=== PATIENT | male | born 1970 | race Caucasian/White ===

== ENCOUNTER 2023-12-30 07:14 | Day surgery (SDC) | payer MEDICARE, OTHER ==
[2023-12-30 07:52] VITALS: TEMP 97.4
[2023-12-30] MEDS: LACTATED RINGERS 1,000 ML IV SCH (07:52)
[2023-12-30] MEDS: LIDOCAINE 1% (10MG/ML) FOR IV START INTRADERMA STA (07:53)
[2023-12-30] MEDS: IV FLUID CONTINUATION 1,000 ML IV ONE (07:54)
[2023-12-30] MEDS ORDERED: PROPOFOL 10 MG/ML 20 ML VIAL IV ONE (08:15)
--- NOTE | 2023-12-30 08:29 | P.PCN ---
Date of Procedure: 12/30/23 Procedure(s) Performed: BRIEF HISTORY: Patient is a 53-year-old, pleasant, white male scheduled for an upper endoscopy as a part evaluation of severe GERD for the last few months duration. Has been on Protonix 40 mg twice daily and despite this remains symptomatic.. PROCEDURE PERFORMED: Esophagogastroduodenoscopy biopsy. PREOPERATIVE DIAGNOSIS: Longstanding history of GERD with worsening symptoms daily. IV sedation per anesthesia. PROCEDURE: After informed consent was obtained, the patient was brought into the endoscopy unit. IV sedation was administered by Anesthesia under continuous monitoring. Initially the Olympus GIF-140 video endoscope was inserted into the mouth. Esophagus intubated without any difficulty. It was gradually advanced into the stomach and duodenum and carefully examined. The bulb and the second part of the duodenum appeared normal. The scope at this time was withdrawn to the stomach, adequately insufflated with air, and upon careful examination, mucosa of the antrum, mild patchy areas of erythema consistent with gastritis and biopsies were done from this area. Mucosa body, cardia and the fundus appeared normal. The scope was then withdrawn into the esophagus. Small hiatal hernia noted. The GE junction was located at 41 cm from the incisors. Linear erosions noted in the distal esophagus consistent with LA grade B reflux esophagitis. Rest of the esophagus appeared normal and the patient tolerated the procedure well. IMPRESSION: 1. Linear erosions of the distal esophagus consistent with LA grade B reflux esophagitis. 2. Small hiatal hernia 3. Mild antral gastritis. RECOMMENDATIONS: The findings of this examination were discussed with the ibrahima lopez as well as his family. Follow-up with the biopsy results. He was advised to continue with Protonix 40 mg twice daily half hour before breakfast and dinnertime and use with Pepcid 20 mg twice daily at noon and bedtime. Strict diet modification and antireflux measures..
[2023-12-30 08:52] VITALS: BP 111/79; PULSE 97; RESP 18
== END 2023-12-30 09:15 | disposition home or self-care (01) ==
LOC: ORWHC2ENDO 07:14
PROVIDERS: ATTEND Internal Medicine Gastroenterology
CPT/HCPCS: 43239; 88305

== ENCOUNTER 2024-02-22 06:58 | Emergency (ER) | payer MEDICARE ==
[2024-02-22 07:03] VITALS: TEMP 98
--- NOTE | 2024-02-22 07:05 | ED ---
SOB HPI - General Chief Complaint: Shortness of Breath Stated Complaint: SOB Time Seen by Provider: 02/22/24 06:59 Source: patient, EMS, RN notes reviewed Mode of arrival: EMS Limitations: no limitations - History of Present Illness Initial Comments: 54-year-old male presents emergency department complaint of shortness of breath. Patient does have history of COPD states he still current smoker. Patient states that for several months he has issues like this he states he is gets steroids and breathing treatments and seems to help he has been doing breathing treatments at home but states his shortness of breath was not resolving. He states he always has a productive cough and worsening usual denies any fever. He states that he has had some fluid on his lungs in the past 2 associated with his pneumonia. Patient denies any abdominal pain states that supplemental oxygen in his room receiving is helping. Patient reports no palpitations. - Related Data Home Medications Medication Instructions Recorded Confirmed Albuterol Sulfate [Ventolin HFA] 1 puff INHALATION DIRECTED PRN 12/29/23 12/29/23 Amitriptyline HCl [Elavil] 100 mg PO HS 12/29/23 12/29/23 Budesonide/Formoterol Fumarate 1 puff INHALATION BID 12/29/23 12/29/23 [Symbicort 160-4.5 Mcg Inhaler] Cholecalciferol [Vitamin D3 (25 1 tab PO DAILY 12/29/23 12/29/23 Mcg = 1000 Iu)] Cyanocobalamin (Vitamin B-12) 1 tab PO DAILY 12/29/23 12/29/23 [Vitamin B-12] Famotidine 20 mg PO BID 12/29/23 12/29/23 Fluticasone Nasal Davidson [Flonase 1 spr NASAL DAILY 12/29/23 12/29/23 Nasal Davidson] Pantoprazole [Protonix] 40 mg PO BID 12/29/23 12/29/23 buPROPion HCL [Wellbutrin XL] 150 mg PO QAM 12/29/23 12/29/23 Previous Rx's Medication Instructions Recorded Ipratropium-Albuterol Nebulize 3 ml INHALATION Q4-6H PRN #90 ml 12/22/22 [Duoneb 0.5 mg-3 mg/3 ml Soln] Albuterol Nebulized [Ventolin 2.5 mg INHALATION Q4H 8 Days #150 02/22/24 Nebulized] ml Doxycycline [Vibramycin] 100 mg PO BID #20 capsule 02/22/24 Ipratropium Nebulized [Atrovent 0.5 mg INHALATION Q6HR #300 ml 02/22/24 Nebulized 0.2 MG/ML] predniSONE 50 mg PO DAILY #5 tab 02/22/24 Allergies Allergy/AdvReac Type Severity Reaction Status Date / Time No Known Allergies Allergy Verified 12/30/23 07:45 Review of Systems ROS Statement: Those systems with pertinent positive or pertinent negative responses have been documented in the HPI. ROS Other: All systems not noted in ROS Statement are negative. Past Medical History Past Medical History: COPD, GERD/Reflux, Pneumonia History of Any Multi-Drug Resistant Organisms: None Reported Past Surgical History: Orthopedic Surgery Additional Past Surgical History / Comment(s): R hip REPLACED. BILATERAL KNEE REPLACED. Past Anesthesia/Blood Transfusion Reactions: No Reported Reaction Smoking Status: Current every day smoker General Exam Limitations: no limitations General appearance: alert, in no apparent distress Head exam: Present: atraumatic, normocephalic, normal inspection Eye exam: Present: normal appearance, PERRL, EOMI. Absent: scleral icterus, conjunctival injection, periorbital swelling ENT exam: Present: normal exam, normal oropharynx, mucous membranes moist Neck exam: Present: normal inspection, full ROM. Absent: tenderness, meningismus, lymphadenopathy Respiratory exam: Present: respiratory distress, wheezes. Absent: normal lung sounds bilaterally, rales, rhonchi, stridor Cardiovascular Exam: Present: normal rhythm, tachycardia, normal heart sounds. Absent: systolic murmur, diastolic murmur, rubs, gallop, clicks GI/Abdominal exam: Present: soft, normal bowel sounds. Absent: distended, tenderness, guarding, rebound, rigid Neurological exam: Present: alert Skin exam: Present: warm, dry, intact, normal color. Absent: rash Course Vital Signs 02/22/24 02/22/24 02/22/24 06:59 07:05 07:37 Temperature 98.0 F Pulse Rate 111 H 102 H Respiratory 20 20 20 Rate Blood Pressure 138/104 128/88 O2 Sat by Pulse 96 98 Oximetry 02/22/24 02/22/24 08:32 08:51 Temperature Pulse Rate 98 96 Respiratory Rate Blood Pressure O2 Sat by Pulse Oximetry Medical Decision Making - Medical Decision Making Was pt. sent in by a medical professional or institution (SHELIA Rolon, INSTANT POWDER SUPERVISOR, urgent care, hospital, or correction...) When possible be specific @ -No Did you speak to anyone other than the patient for history (EMS, parent, family, police, friend...)? What history was obtained from this source @ -No Did you review nursing and triage notes (agree or disagree)? Why? @ -I reviewed and agree with nursing and triage notes Were old charts reviewed (outside hosp., previous admission, EMS record, old EKG, old radiological studies, urgent care reports/EKG's, correction records)? Report findings @ -No old charts were reviewed Differential Diagnosis (chest pain, altered mental status, abdominal pain women, abdominal pain men, vaginal bleeding, weakness, fever, dyspnea, syncope, headache, dizziness, GI bleed, back pain, seizure, CVA, palpatations, mental health, musculoskeletal)? @ -Differential Dyspnea: Coronary syndrome, arrhythmia, tamponade, asthma, COPD, pulmonary embolism, pneumonia, pneumothorax, pulmonary effusion, anaphylaxis, diabetic ketoacidosis, flailed chest, pulmonary contusion, diaphragmatic rupture, anemia, neuromuscular, this is not meant to be an all-inclusive list. EKG interpreted by me (3pts min.). @ -As above X-rays interpreted by me (1pt min.). @ -Chest x-ray shows COPD changes no acute infiltrate CT interpreted by me (1pt min.). @ -None done U/S interpreted by me (1pt. min.). @ -None done What testing was considered but not performed or refused? (CT, X-rays, U/S, labs)? Why? @ -None What meds were considered but not given or refused? Why? @ -None Did you discuss the management of the patient with other professionals (professionals i.e. SHELIA Rolon, INSTANT POWDER SUPERVISOR, lab, RT, psych nurse, neonatal social worker, technical publications manager, teacher, control officer, case monitor)? Give summary @ -No Was smoking cessation discussed for >3mins.? @ -I discussed smoking cessation for greater than 3 minutes. The risk of smoking were discussed with the patient including but not limited to risks of cancer, stroke, coronary artery disease and COPD. Also discussed with patient were multiple methods of quitting smoking. Lastly we discussed the financial cost of smoking. Was critical care preformed (if so, how long)? @ -No Were there social determinants of health that impacted care today? How? (Homelessness, low income, unemployed, alcoholism, drug addiction, transportation, low edu. Level, literacy, decrease access to med. care, nursing home, rehab)? @ -No Was there de-escalation of care discussed even if they declined (Discuss DNR or withdrawal of care, Hospice)? DNR status @ -No What co-morbidities impacted this encounter? (DM, HTN, Smoking, COPD, CAD, Cancer, CVA, ARF, Chemo, Hep., AIDS, mental health diagnosis, sleep apnea, morbid obesity)? @ -COPD Was patient admitted / discharged? Hospital course, mention meds given and route, prescriptions, significant lab abnormalities, going to OR and other pertinent info. @ -Discharge patient felt great improved with IV steroids, DuoNeb treatment. Patient has COPD exacerbation. Patient did receive Solu-Medrol, Rocephin. Patient discharged on prednisone, albuterol and Atrovent treatments along with doxycycline. Patient follow-up with counseling services manager. Undiagnosed new problem with uncertain prognosis? @ -No Drug Therapy requiring intensive monitoring for toxicity (Heparin, Nitro, Insulin, Cardizem)? @ -No Were any procedures done? @ -No Diagnosis/symptom? @ -COPD exacerbation Acute, or Chronic, or Acute on Chronic? @ -Acute Uncomplicated (without systemic symptoms) or Complicated (systemic symptoms)? @ -Complicated Side effects of treatment? @ -No Exacerbation, Progression, or Severe Exacerbation? @ -Exacerbation Poses a threat to life or bodily function? How? (Chest pain, USA, CA, pneumonia, PE, COPD, DKA, ARF, appy, cholecystitis, CVA, Diverticulitis, Homicidal, Suicidal, threat to staff... and all critical care pts) @ -Yes COPD exacerbation possible respiratory failure - Lab Data Result diagrams: 02/22/24 07:15 02/22/24 07:15 Lab Results 02/22/24 02/22/24 02/22/24 Range/Units 07:15 07:15 07:15 WBC 8.5 (3.8-10.6) k/uL RBC 4.53 (4.30-5.90) m/uL Hgb 15.3 (13.0-17.5) gm/dL Hct 46.6 (39.0-53.0) % MCV 102.9 H (80.0-100.0) fL MCH 33.7 (25.0-35.0) pg MCHC 32.7 (31.0-37.0) g/dL RDW 12.0 (11.5-15.5) % Plt Count 267 (150-450) k/uL MPV 6.8 Neutrophils % 72 % Lymphocytes % 12 % Monocytes % 6 % Eosinophils % 9 % Basophils % 0 % Neutrophils # 6.1 (1.3-7.7) k/uL Lymphocytes # 1.0 (1.0-4.8) k/uL Monocytes # 0.5 (0-1.0) k/uL Eosinophils # 0.8 H (0-0.7) k/uL Basophils # 0.0 (0-0.2) k/uL Macrocytosis Slight PT 10.4 (10.0-12.5) sec INR 0.9 (<1.2) APTT 29.5 (22.0-30.0) sec Sodium 135 L (137-145) mmol/L Potassium 4.4 (3.5-5.1) mmol/L Chloride 103 (98-107) mmol/L Carbon Dioxide 26 (22-30) mmol/L Anion Gap 6 mmol/L BUN 12 (9-20) mg/dL Creatinine 1.05 (0.66-1.25) mg/dL Est GFR (CKD-EPI)AfAm >90 (>60 ml/min/1.73 sqM) Est GFR (CKD-EPI)NonAf 81 (>60 ml/min/1.73 sqM) Glucose 105 H (74-99) mg/dL Plasma Lactic Acid Morro (0.7-2.0) mmol/L Calcium 9.3 (8.4-10.2) mg/dL Total Bilirubin 0.6 (0.2-1.3) mg/dL AST 18 (17-59) U/L ALT 17 (4-49) U/L Alkaline Phosphatase 88 (38-126) U/L Troponin I (0.000-0.034) ng/mL NT-Pro-B Natriuret Pep 25 pg/mL Total Protein 7.0 (6.3-8.2) g/dL Albumin 4.4 (3.5-5.0) g/dL Influenza Type A (PCR) (Not Detectd) Influenza Type B (PCR) (Not Detectd) RSV (PCR) (Not Detectd) SARS-CoV-2 (PCR) (Not Detectd) 02/22/24 02/22/24 02/22/24 Range/Units 07:15 07:15 07:15 WBC (3.8-10.6) k/uL RBC (4.30-5.90) m/uL Hgb (13.0-17.5) gm/dL Hct (39.0-53.0) % MCV (80.0-100.0) fL MCH (25.0-35.0) pg MCHC (31.0-37.0) g/dL RDW (11.5-15.5) % Plt Count (150-450) k/uL MPV Neutrophils % % Lymphocytes % % Monocytes % % Eosinophils % % Basophils % % Neutrophils # (1.3-7.7) k/uL Lymphocytes # (1.0-4.8) k/uL Monocytes # (0-1.0) k/uL Eosinophils # (0-0.7) k/uL Basophils # (0-0.2) k/uL Macrocytosis PT (10.0-12.5) sec INR (<1.2) APTT (22.0-30.0) sec Sodium (137-145) mmol/L Potassium (3.5-5.1) mmol/L Chloride (98-107) mmol/L Carbon Dioxide (22-30) mmol/L Anion Gap mmol/L BUN (9-20) mg/dL Creatinine (0.66-1.25) mg/dL Est GFR (CKD-EPI)AfAm (>60 ml/min/1.73 sqM) Est GFR (CKD-EPI)NonAf (>60 ml/min/1.73 sqM) Glucose (74-99) mg/dL Plasma Lactic Acid Morro 1.0 (0.7-2.0) mmol/L Calcium (8.4-10.2) mg/dL Total Bilirubin (0.2-1.3) mg/dL AST (17-59) U/L ALT (4-49) U/L Alkaline Phosphatase (38-126) U/L Troponin I <0.012 (0.000-0.034) ng/mL NT-Pro-B Natriuret Pep pg/mL Total Protein (6.3-8.2) g/dL Albumin (3.5-5.0) g/dL Influenza Type A (PCR) Not Detected (Not Detectd) Influenza Type B (PCR) Not Detected (Not Detectd) RSV (PCR) Not Detected (Not Detectd) SARS-CoV-2 (PCR) Not Detected (Not Detectd) - EKG Data -: EKG Interpreted by Me EKG Comments: EKG performed at 7: 08 sinus tachycardia rate of 108 MI 132 QRS 108 QT/QTc 323/[address] elevation or depression noted Disposition Clinical Impression: COPD with acute exacerbation Disposition: HOME SELF-CARE Condition: Stable Instructions (If sedation given, give patient instructions): COPD (Chronic Obstructive Pulmonary Disease) (ED) Additional Instructions: Please return to the Emergency Department if symptoms worsen or any other concerns. Prescriptions: Ipratropium Nebulized [Atrovent Nebulized 0.2 MG/ML] 0.5 mg INHALATION Q6HR #300 ml predniSONE 50 mg PO DAILY #5 tab Albuterol Nebulized [Ventolin Nebulized] 2.5 mg INHALATION Q4H 8 Days #150 ml Doxycycline [Vibramycin] 100 mg PO BID #20 capsule Is patient prescribed a controlled substance at d/c from ED?: No Referrals: Gayla Morales DO [Primary Care Provider] - 1-2 days Time of Disposition: 08:49
[2024-02-22] MEDS: methylPREDNISolone SOD SUCCI 125 MG/2 ML VIAL IV STA (07:35)
[2024-02-22 07:42] LABS: Basophils % (A) 0 %; Eosinophils # (A) 0.8 k/uL (0-0.7); Eosinophils % (A) 9 %; HCT 46.6 % (39.0-53.0); HGB 15.3 gm/dL (13.0-17.5); Lymphocytes % (A) 12 %; MCH 33.7 pg (25.0-35.0); MCHC 32.7 g/dL (31.0-37.0); MCV 102.9 fL (80.0-100.0); Macrocytosis Slight; Mean Platelet Volume 6.8; Monocytes # (A) 0.5 k/uL (0-1.0); Monocytes % (A) 6 %; Neutrophils # (A) 6.1 k/uL (1.3-7.7); Neutrophils % (A) 72 %; Platelet Count 267 k/uL (150-450); RBC 4.53 m/uL (4.30-5.90); WBC 8.5 k/uL (3.8-10.6)
[2024-02-22 07:47] LABS: ALT 17 U/L (4-49); AST 18 U/L (17-59); African American GFR (CKD) >90 (>60 ml/min/1.73 sqM); Albumin 4.4 g/dL (3.5-5.0); Alkaline Phosphatase 88 U/L (38-126); Anion Gap 6 mmol/L; Blood Urea Nitrogen 12 mg/dL (9-20); Calcium 9.3 mg/dL (8.4-10.2); Carbon Dioxide 26 mmol/L (22-30); Chloride 103 mmol/L (98-107); Glucose 105 mg/dL (74-99); Non-African American GFR(CKD) 81 (>60 ml/min/1.73 sqM); Potassium 4.4 mmol/L (3.5-5.1); Sodium 135 mmol/L (137-145); Total Bilirubin 0.6 mg/dL (0.2-1.3)
[2024-02-22 07:52] LABS: INR 0.9 (<1.2); Partial Thromboplastin Time 29.5 sec (22.0-30.0); Prothrombin Time 10.4 sec (10.0-12.5)
--- NOTE | 2024-02-22 07:54 | XR ---
2 view chest HISTORY: Difficulty breathing COMPARISON: 12/22/2022 TECHNIQUE: PA and lateral views chest obtained. FINDINGS: The lungs are clear of consolidative, interstitial or masslike opacity. There is no pleural effusion, pleural thickening or pneumothorax. The heart, pulmonary vasculature, mediastinum and nadine are within normal limits. There is a healed left seventh rib fracture otherwise the osseous structures are intact. IMPRESSION: No significant abnormality. No acute cardiopulmonary disease. [facility], , 02/22/2024 7:52 AM
[2024-02-22 07:56] LABS: NT-Pro-B-Type Natriuretic Pept 25 pg/mL
[2024-02-22] MEDS: IPRATROPIUM-ALBUTEROL 3 ML NEB INHALATION STA (08:30)
[2024-02-22] MEDS: cefTRIAXone IN SWFI 1,000 MG/10 ML SYRINGE IVP STA (09:17)
[2024-02-22 09:28] VITALS: BP 124/89; PULSE 88; RESP 18
== END 2024-02-22 09:28 | disposition home or self-care (01) ==
LOC: EC 06:58
DX: J44.1 Chronic obstructive pulmonary disease with (acute) exacerbation (principal); F17.200 Nicotine dependence, unspecified, uncomplicated
CPT/HCPCS: 99285; 96374; 96375; 36415; 94640; 93005; 83880; 80053; 83605; 84484; 85025; 85610; 85730; 87636; 71046; 99406; J0696; J2919

== ENCOUNTER 2024-03-07 04:34 | Emergency (ER) | payer MEDICARE ==
--- NOTE | 2024-03-07 05:16 | ED ---
General Adult HPI <Arcenio Fletcher - Last Filed: 03/07/24 07:40> - General Source: patient Mode of arrival: ambulatory <Tiffany - Last Filed: 03/07/24 08:01> - General Chief complaint: Shortness of Breath Stated complaint: TRACY Time Seen by Provider: 03/07/24 05:01 - History of Present Illness Initial comments: This is a 54-year-old gentleman with a past medical history of COPD/emphysema presenting today for shortness of breath. Patient states feels similar to when he has presented similarly for COPD exacerbations. States he will go on steroids and as soon as he finishes the steroids his symptoms worsen. A few days ago he finished a 5-day course of 50 mg of prednisone. This briefly improved his symptoms however over the last 2 days he has had worsening shortness of breath. Endorses a pressure across his chest that occurs when he tries to take a deep breath, otherwise denies chest pain. Endorses a cough productive of sputum but denies hemoptysis. Denies any recent fevers or chills, new numbness or weakness, abdominal pain nausea vomiting or diarrhea. Patient is currently still smoking and has a follow-up appointment with the manager credit this coming Friday. (Tiffany Panchal) - Related Data Home Medications Medication Instructions Recorded Confirmed Albuterol Sulfate [Ventolin HFA] 1 puff INHALATION DIRECTED PRN 12/29/23 12/29/23 Amitriptyline HCl [Elavil] 100 mg PO HS 12/29/23 12/29/23 Budesonide/Formoterol Fumarate 1 puff INHALATION BID 12/29/23 12/29/23 [Symbicort 160-4.5 Mcg Inhaler] Cholecalciferol [Vitamin D3 (25 1 tab PO DAILY 12/29/23 12/29/23 Mcg = 1000 Iu)] Cyanocobalamin (Vitamin B-12) 1 tab PO DAILY 12/29/23 12/29/23 [Vitamin B-12] Famotidine 20 mg PO BID 12/29/23 12/29/23 Fluticasone Nasal [place] [Flonase 1 spr NASAL DAILY 12/29/23 12/29/23 Nasal [place]] Pantoprazole [Protonix] 40 mg PO BID 12/29/23 12/29/23 buPROPion HCL [Wellbutrin XL] 150 mg PO QAM 12/29/23 12/29/23 Previous Rx's Medication Instructions Recorded Ipratropium-Albuterol Nebulize 3 ml INHALATION Q4-6H PRN #90 ml 12/22/22 [Duoneb 0.5 mg-3 mg/3 ml Soln] Albuterol Nebulized [Ventolin 2.5 mg INHALATION Q4H 8 Days #150 02/22/24 Nebulized] ml Doxycycline [Vibramycin] 100 mg PO BID #20 capsule 02/22/24 Ipratropium Nebulized [Atrovent 0.5 mg INHALATION Q6HR #300 ml 02/22/24 Nebulized 0.2 MG/ML] predniSONE 50 mg PO DAILY #5 tab 02/22/24 predniSONE 50 mg PO DAILY 5 Days #5 tab 03/07/24 Allergies Allergy/AdvReac Type Severity Reaction Status Date / Time No Known Allergies Allergy Verified 12/30/23 07:45 Review of Systems ROS Other: All systems not noted in ROS Statement are negative. <Arcenio Fletcher - Last Filed: 03/07/24 07:40> ROS Other: All systems not noted in ROS Statement are negative. <Tiffany Panchal - Last Filed: 03/07/24 08:01> ROS Statement: Those systems with pertinent positive or pertinent negative responses have been documented in the HPI. Past Medical History Past Medical History: COPD, GERD/Reflux, Pneumonia History of Any Multi-Drug Resistant Organisms: None Reported Past Surgical History: Orthopedic Surgery Additional Past Surgical History / Comment(s): R hip REPLACED. BILATERAL KNEE REPLACED. Past Anesthesia/Blood Transfusion Reactions: No Reported Reaction Past Psychological History: No Psychological Hx Reported Smoking Status: Current every day smoker Past Alcohol Use History: Daily Past Drug Use History: None Reported <Tiffany Panchal - Last Filed: 03/07/24 08:01> General Exam <Tiffany Panchal - Last Filed: 03/07/24 08:01> - General Exam Comments Initial Comments: PE: CONSTITUTIONAL: Mild distress, tachypneic, pursed lip breathing nontoxic SKIN: Warm, dry, no jaundice, hives or petechiae EYES: Pupils are equally round, extraocular movements intact without nystagmus, clear conjunctiva, non-icteric sclera HENT: Normocephalic, atraumatic, moist mucus membranes, oropharynx clear without exudates NECK: , Full range of motion, normal appearance PULMONARY: Tachypnea, diffuse wheezesin all lung peoples, no stridor no rhonchi, increased excursion CARDIOVASCULAR: Regular rate, rhythm, normal S1 and S2. No appreciated murmurs, rubs or gallops. Strong radial pulses with intact distal perfusion. No lower extremity edema GASTROINTESTINAL: Soft, active bowel sounds throughout, non-tender, non- distended, no palpable masses, no rebound or guarding. No hepatosplenomegaly GENITOURINARY: MUSCULOSKELETAL: Extremities have no gross deformity, no edema, redness, or swelling. No calf swelling NEUROLOGIC:_a/o x 3, GCS 15, normal mentation and speech. Moves all extremities x 4 without motor or sensory deficit PSYCHIATRIC:_normal mood and affect, thought process is clear and linear (Tiffany Panchal) Course Vital Signs 03/07/24 03/07/24 03/07/24 04:35 05:39 05:43 Temperature 97.7 F Pulse Rate 105 H 99 101 H Respiratory 22 16 Rate Blood Pressure 125/77 104/90 O2 Sat by Pulse 95 98 Oximetry 03/07/24 03/07/24 03/07/24 05:57 06:00 06:20 Temperature Pulse Rate 100 102 H 105 H Respiratory Rate Blood Pressure O2 Sat by Pulse Oximetry 03/07/24 03/07/24 06:21 06:46 Temperature Pulse Rate 106 H 103 H Respiratory 16 Rate Blood Pressure 131/98 O2 Sat by Pulse 97 Oximetry EKG Findings - EKG Comments: EKG Findings:: Tachycardia, rate 102 bpm, [place] interval 150 ms, QRS duration 104 ms, QT/QTc 331/390 ms, no ST elevations or depressions, <Tiffany Panchal - Last Filed: 03/07/24 08:01> Medical Decision Making <Arcenio Fletcher - Last Filed: 03/07/24 07:40> <Tiffany Panchal - Last Filed: 03/07/24 08:01> - Medical Decision Making Patient care signed out to me by previous shift physician, Dr. Panchal. Briefly, patient is a 54-year-old male presents for shortness of breath and chest pain. Patient states that he had symptoms of chest pressure that he describes at the bedside as elephant sitting on his chest. At time of signout patient did not have any labs performed. He did have a EKG that I reviewed independently that showed no signs of ischemia or infarction. He was wheezing. At time of signout patient was pending breathing treatment discharge. Patient seen and evaluated independently at the bedside at approximately 7:25 AM. Patient states he does not have any chest pain at the bedside. Given that patient has high risk features it was recommended to patient to have cardiac workup performed including labs and x-ray specially troponin levels. Patient states he would like to be discharged. States that he feels well. Discussed with patient that he could very well be having a myocardial infarction which may only be apparent with blood work, serial troponins and cardiac monitoring. Patient continues to deny states that he wants to be discharged and would only would like to have cardiac workup after he sees manager credit. Discussed with patient that he has elevated heart score and it would be mullen to perform a workup. Patient continues to refuse and would like to be discharged. Patient given strict return precautions. He is told to return to the emergency department with any worsening chest symptoms or recurrence of chest symptoms. Patient adamantly reports that this is likely to be secondary to his COPD states that his chest pain does get better after steroid administration. Patient has signs of the risk and the gravity of the situation. (Arcenio Fletcher) Was pt. sent in by a medical professional or institution (SHELIA Rolon, [employer]PL[employer], urgent care, hospital, or alf...) When possible be specific @ -No Did you speak to anyone other than the patient for history (EMS, parent, family, police, friend...)? What history was obtained from this source @ -No Did you review nursing and triage notes (agree or disagree)? Why? @ -I reviewed and agree with nursing and triage notes Were old charts reviewed (outside hosp., previous admission, EMS record, old EKG, old radiological studies, urgent care reports/EKG's, alf records)? Report findings Medical records reviewed-Patient presented for similar symptoms on 02/22/2024 during that visit basic labs were obtained, BNP was 25, troponin less than 0.012, x-ray done at that time did not show any acute process Differential Diagnosis (chest pain, altered mental status, abdominal pain women, abdominal pain men, vaginal bleeding, weakness, fever, dyspnea, syncope, headache, dizziness, GI bleed, back pain, seizure, CVA, palpatations, mental health, musculoskeletal)? @Differential Dyspnea: Differential diagnosis remains broad however top considerations inclue: Asthma, COPD, pneumonia, viral infection, pulmonary effusion this is not meant to be an all-inclusive list. Patient states symptoms are consistent with prior COPD exacerbations, he has diffuse wheezes in the bilateral lung peoples, denies chest pain and only notes pressure when trying to take a deep breath. EKG shows no STEMI. Patient presented for similar symptoms approximately 2 weeks ago with a reassuring workup, at this point do not feel additional labs and imaging are indicated. EKG interpreted by me (3pts min.). @ -As above X-rays interpreted by me (1pt min.). @ -None done CT interpreted by me (1pt min.). @ -None done U/S interpreted by me (1pt. min.). @ -None done What testing was considered but not performed or refused? (CT, X-rays, U/S, labs)? Why? I did consider chest x-ray, CBC, CMP, troponin BNP however, as noted above patient's history and exam findings are consistent with COPD exacerbation What meds were considered but not given or refused? Why? @ -None Did you discuss the management of the patient with other professionals (professionals i.e. , PA, IMPLANT POLISHER, lab, RT, psych nurse, addiction social worker, railcar switchman, teacher, diplomatic officer, senior case manager)? Give summary @ -No Was smoking cessation discussed for >3mins.? @ -No Was critical care preformed (if so, how long)? @Yes, 35 minutes Were there social determinants of health that impacted care today? How? (Homelessness, low income, unemployed, alcoholism, drug addiction, transportation, low edu. Level, literacy, decrease access to med. care, long term, rehab)? @ -No Was there de-escalation of care discussed even if they declined (Discuss DNR or withdrawal of care, Hospice)? @ -No What co-morbidities impacted this encounter? (DM, HTN, Smoking, COPD, CAD, Cancer, CVA, ARF, Chemo, Hep., AIDS, mental health diagnosis, sleep apnea, morbid obesity)? @COPD, smoking Was patient admitted / discharged? Hospital course, mention meds given and route, prescriptions, significant lab abnormalities, going to OR and other pertinent info. Signed out to oncoming physician, Dr. Watson, pending repeat nebulizer treatment. T his is [id number] gentleman presenting today for COPD exacerbation. On assessment he is tachypneic with increased excursion, wheezing in all lung peoples. Given patient states symptoms are consistent with prior COPD exacerbations and physical exam consistent with COPD exacerbation will perform nebulizer treatments [id number] and give steroids. As patient recently was here for similar and had a chest x-ray performed and he has no focal breath sounds I do not feel repeat chest x-ray and labs are indicated at this point. Patient agreeable plan of care. On assessment patient endorses resolution of symptoms. More comfortable. On reauscultation of his lungs he does still have wheezing in the bilateral lung bases though patient is much improved. I offered him an additional nebulizer treatment and reassessment with anticipated discharge. Patient agreeable plan of care. Patient was signed out to oncoming physician pending repeat nebulizer treatment and reassessment. Anticipate discharge. Undiagnosed new problem with uncertain prognosis? @ -No Drug Therapy requiring intensive monitoring for toxicity (Heparin, Nitro, Insulin, Cardizem)? @ -No Were any procedures done? @ -No Diagnosis/symptom? @COPD exacerbation Acute, or Chronic, or Acute on Chronic? @Acute Uncomplicated (without systemic symptoms) or Complicated (systemic symptoms)? Complicated Side effects of treatment? @ -No Exacerbation, Progression, or Severe Exacerbation? Exacerbation Poses a threat to life or bodily function? How? (Chest pain, [place], [place], pneumonia, PE, COPD, DKA, ARF, appy, cholecystitis, CVA, Diverticulitis, Homicidal, Suicidal, threat to staff... and all critical care pts) Yes, if allowed to continue untreated could result in acute hypoxic respiratory failure and (Tiffany Panchal) Disposition Is patient prescribed a controlled substance at d/c from ED?: No Time of Disposition: 07:43 <Arcenio Fletcher - Last Filed: 03/07/24 07:40> Is patient prescribed a controlled substance at d/c from ED?: No <Tiffany Panchal - Last Filed: 03/07/24 08:01> Clinical Impression: COPD exacerbation, Chest pain Disposition: HOME SELF-CARE Condition: Good Additional Instructions: There was concern given your description of your chest pain that you could be having a heart attack. We had an extensive discussion and you insisted on being discharged without any further cardiac workup. It is important that you return to the emergency department with any worsening chest symptoms especially associated pressure, radiation of symptoms, extremity paresthesias, nausea and d iaphoresis. Otherwise it is important to follow-up with your primary care doctor for further care. Prescriptions: predniSONE 50 mg PO DAILY 5 Days #5 tab Referrals: Gayla Morales DO [Primary Care Provider] - 1-2 days
[2024-03-07] MEDS: methylPREDNISolone SOD SUCCI 125 MG/2 ML VIAL IV STA (05:24)
[2024-03-07] MEDS: ALBUTEROL NEBULIZED 2.5 MG/3 ML INHALATION SCH (05:39)
[2024-03-07] MEDS: IPRATROPIUM 0.5 MG/2.5 ML NEBU INHALATION STA (05:40)
[2024-03-07 08:07] VITALS: BP 123/99; PULSE 102; RESP 22; TEMP 97.9
[2024-03-07] MEDS: IPRATROPIUM-ALBUTEROL 3 ML NEB INHALATION STA (08:07)
== END 2024-03-07 08:20 | disposition home or self-care (01) ==
LOC: EC 04:34
DX: J44.1 Chronic obstructive pulmonary disease with (acute) exacerbation (principal); R07.9 Chest pain, unspecified; F17.200 Nicotine dependence, unspecified, uncomplicated
CPT/HCPCS: 94640 ×2; 99285; 96374; J2919

== ENCOUNTER → 2024-06-15 | Outpatient (CLI) | payer MEDICARE ==
--- NOTE | 2024-06-15 12:10 | CTL ---
EXAMINATION TYPE: CT Low Dose Lung DATE OF EXAM ORDERED: 06/15/2024 COMPARISON: Prior CT December 22, 2022 CLINICAL INDICATION: Male, 54 years old with history of Z12.2 Screening; F17.210 Nicotine dependence; PHH, Screening for malignant neoplasm, Nicotine dependence, Lung cancer screening, History of Smokin g/tobacco use. TECHNIQUE: Low dose computed tomography scan was performed through the chest at 1 mm thick sections a nd reconstructed images in multiple planes at 1 mm and [address] DLP: [address] CTDI: 1.768 mGy Automated exposure control for dose reduction was used. CT DIAGNOSTIC QUALITY: Satisfactory FINDINGS: Nodules: Stable 5 mm right lower lobe nodule axial image 128. The area No new greater than 4 mm pulmo nary nodules. LUNGS: COPD: Severity: None Fibrosis: Severity: None Lymph nodes: None Other findings: Small degree of bilateral subareolar gynecomastia is redemonstrated. RIGHT PLEURAL SPACE: Effusion: None Calcification: None Thickening: None Pneumothorax: None LEFT PLEURAL SPACE: Effusion: None Calcification: None Thickening: None Pneumothorax: None HEART: Heart Size: Normal Coronary Calcification: None Pericardial Effusion: None OTHER FINDINGS: Upper abdomen: None Bony thorax: None Supraclavicular region: None Other: None IMPRESSION: No suspicious new or enlarging pulmonary nodules CT LUNG RAD AND CT CHEST RECOMMENDATION: Lung-Rad 2 Benign Appearance or Behavior: Continue annual sc reening with LDCT in 12 months. S Modifier (other clinically significant findings): None [facility], , 06/15/2024 12:07 PM
== END | disposition home or self-care (01) ==
LOC: RADCTMAIN 10:21
PROVIDERS: ATTEND Internal Medicine
DX: Z12.2 Encounter for screening for malignant neoplasm of respiratory organs (principal); F17.210 Nicotine dependence, cigarettes, uncomplicated
CPT/HCPCS: 71271